=== PATIENT | female | born 1990 | race Caucasian/White ===

== ENCOUNTER 2022-10-13 05:55 | Inpatient (IN) | payer OTHER ==
[2022-10-13] MEDS ORDERED: LIDOCAINE 0.5% (PF) 5 MG/ML (50 ML SDV) SQ PRN (06:40)
[2022-10-13] MEDS ORDERED: TERBUTALINE 1 MG/ML VIAL SQ PRN (06:40)
[2022-10-13] MEDS ORDERED: OXYTOCIN 30 UNITS/500 ML NS 30 UNIT in SALINE 1 500ML.BAG IV SCH ×2 (06:45→17:00)
[2022-10-13] MEDS: LACTATED RINGERS 1,000 ML IV SCH ×3 (06:46→15:29)
[2022-10-13 07:05] LABS: Basophils # (A) 0.1 k/uL (0-0.2); Basophils % (A) 1 %; Eosinophils # (A) 0.4 k/uL (0-0.7); Eosinophils % (A) 2 %; HCT 31.7 % (34.0-46.0); HGB 11.1 gm/dL (11.4-16.0); Lymphocytes # (A) 3.4 k/uL (1.0-4.8); Lymphocytes % (A) 17 %; MCH 31.7 pg (25.0-35.0); MCHC 34.9 g/dL (31.0-37.0); MCV 90.9 fL (80.0-100.0); Mean Platelet Volume 10.6; Monocytes # (A) 1.4 k/uL (0-1.0); Monocytes % (A) 7 %; Neutrophils # (A) 15.1 k/uL (1.3-7.7); Neutrophils % (A) 73 %; Platelet Count 253 k/uL (150-450); Poikilocytosis Slight; RBC 3.48 m/uL (3.80-5.40); RDW 14.2 % (11.5-15.5); WBC 20.8 k/uL (3.8-10.6)
[2022-10-13 11:12] LABS: Amphetamine Screen,Urine Not Detected (NotDetected); Barbiturate Screen,Urine Not Detected (NotDetected); Benzodiazepines Screen,Urine Not Detected (NotDetected); Cocaine Screen,Urine Not Detected (NotDetected); Methadone Screen, Urine Not Detected (NotDetected); Opiate Screen,Urine Not Detected (NotDetected); Oxycodone Screen, Urine Not Detected (NotDetected); Phencyclidine Screen,Urine Not Detected (NotDetected); Tricyclic Antidepressant,Urine Not Detected (NotDetected); Urn Cannabinoid Scrn Not Detected (NotDetected)
[2022-10-13] MEDS ORDERED: SODIUM CHLORIDE 0.9% 100 ML BAG ONE (12:34)
[2022-10-13] MEDS ORDERED: ROPIVACAINE 5 MG/ML 20 ML AMPULE ONE (12:34)
[2022-10-13] MEDS ORDERED: fentaNYL (PF) 50 MCG/ML 5 ML AMP ONE (12:34)
[2022-10-13] MEDS ORDERED: CITRIC ACID-SODIUM CITRATE 15 ML CUP PO ONE (16:15)
[2022-10-13] MEDS ORDERED: LIDOCAINE 4% LTA KIT (4 ML) TOPICAL ONE (16:17)
[2022-10-13] MEDS ORDERED: fentaNYL (PF) 50 MCG/ML 2 ML AMP ONE (16:17)
[2022-10-13] MEDS ORDERED: PHENYLEPHRINE-0.9% NACL SYG 1,000 MCG/10 ML SYRINGE ONE (16:17)
[2022-10-13] MEDS ORDERED: OXYTOCIN 30 UNITS/500 ML NS BAG IV ONE (16:17)
[2022-10-13] MEDS ORDERED: SUCCINYLCHOLINE CHLORIDE 200 MG/10 ML VIAL IV ONE (16:17)
[2022-10-13] MEDS ORDERED: ONDANSETRON 4 MG/2 ML VIAL ONE (16:17)
[2022-10-13] MEDS ORDERED: PROPOFOL 10 MG/ML 20 ML VIAL IV ONE (16:17)
[2022-10-13] MEDS ORDERED: KETOROLAC 15 MG/ML 1 ML VIAL ONE (16:17)
[2022-10-13] MEDS ORDERED: HYDROmorphone PCA 10 MG/50 ML BAG IV PRN (16:56)
[2022-10-13] MEDS ORDERED: NALOXONE 0.4 MG/ML 1 ML VIAL IV PRN ×2 (16:56→16:57)
[2022-10-13] MEDS ORDERED: diphenhydrAMINE 50 MG/ML 1 ML VIAL IVP PRN ×2 (16:57)
[2022-10-13] MEDS ORDERED: diphenhydrAMINE 50 MG CAP PO PRN (16:57)
[2022-10-13] MEDS ORDERED: ONDANSETRON 4 MG/2 ML VIAL IVP PRN (16:57)
[2022-10-13] MEDS ORDERED: METOCLOPRAMIDE 5 MG/ML 2 ML VIAL IVP PRN (16:57)
[2022-10-13] MEDS ORDERED: SIMETHICONE 80 MG CHEWABLE PO PRN (16:57)
[2022-10-13] MEDS ORDERED: LANOLIN CREAM 5 GM TUBE TOPICAL PRN (16:57)
[2022-10-13] MEDS ORDERED: diphenhydrAMINE 25 MG CAP PO PRN (16:57)
[2022-10-13] MEDS ORDERED: ZOLPIDEM 5 MG TAB PO PRN (16:57)
[2022-10-13 17:50] VITALS: RESP 16
[2022-10-13] MEDS: SENNOSIDES-DOCUSATE SODIUM 1 EACH TAB PO SCH ×2 (22:53)
[2022-10-13] MEDS: KETOROLAC 15 MG/ML 1 ML VIAL IVP SCH (23:20)
[2022-10-13] MEDS: ACETAMINOPHEN TAB 500 MG TAB PO SCH (23:39)
[2022-10-14] MEDS: ACETAMINOPHEN TAB 500 MG TAB PO SCH ×4 (03:24→22:18)
[2022-10-14] MEDS: KETOROLAC 15 MG/ML 1 ML VIAL IVP SCH ×4 (06:30→18:23)
[2022-10-14 08:17] LABS: Basophils # (A) 0.1 k/uL (0-0.2); Basophils % (A) 0 %; Eosinophils # (A) 0.3 k/uL (0-0.7); Eosinophils % (A) 1 %; HCT 27.1 % (34.0-46.0); Hypochromasia Slight; Lymphocytes # (A) 3.8 k/uL (1.0-4.8); Lymphocytes % (A) 15 %; MCH 31.4 pg (25.0-35.0); MCHC 33.6 g/dL (31.0-37.0); MCV 93.3 fL (80.0-100.0); Mean Platelet Volume 10.4; Monocytes # (A) 1.6 k/uL (0-1.0); Monocytes % (A) 6 %; Neutrophils # (A) 19.6 k/uL (1.3-7.7); Neutrophils % (A) 76 %; Platelet Count 205 k/uL (150-450); RDW 14.3 % (11.5-15.5); WBC 25.7 k/uL (3.8-10.6)
[2022-10-14] MEDS: SENNOSIDES-DOCUSATE SODIUM 1 EACH TAB PO SCH ×3 (08:18→22:27)
[2022-10-14 08:26] LABS: HGB 9.1 gm/dL (11.4-16.0)
[2022-10-14] MEDS: LACTATED RINGERS 1,000 ML IV SCH ×2 (09:19→22:29)
[2022-10-14] MEDS: IBUPROFEN 600 MG TAB PO SCH ×2 (14:00→18:22)
--- NOTE | 2022-10-14 17:10 | P.HPOB ---
History of Present Illness H&P Date: 10/13/22 Chief Complaint: induction of labor 32 year old presents at 40 weeks and 3 days for induction of labor. Her cervix is 1-2 cm dilated, 70% effaced, -2 station. She is viridiana irregularly. heart tones 135 with moderate variability and reactive. Review of Systems All systems: negative Constitutional: Denies chills, Denies fever Eyes: denies blurred vision, denies pain Ears, nose, mouth and throat: Denies headache, Denies sore throat Cardiovascular: Denies chest pain, Denies shortness of breath Respiratory: Denies cough Gastrointestinal: Denies abdominal pain, Denies diarrhea, Denies nausea, Denies vomiting Genitourinary: Denies dysuria, Denies hematuria Musculoskeletal: Denies myalgias Integumentary: Denies pruritus, Denies rash Neurological: Denies numbness, Denies weakness Psychiatric: Denies anxiety, Denies depression Endocrine: Denies fatigue, Denies weight change Past Medical History Additional Past Medical History / Comment(s): Ventricular Hypertrophy, PCOS History of Any Multi-Drug Resistant Organisms: None Reported Past Surgical History: Adenoidectomy, Tonsillectomy Past Anesthesia/Blood Transfusion Reactions: No Reported Reaction Smoking Status: Current every day smoker Past Drug Use History: Marijuana Medications and Allergies Home Medications Medication Instructions Recorded Confirmed Type Vit No.179/Iron/Folic 1 tab PO DAILY 10/13/22 10/13/22 History [ Tablet] Allergies Allergy/AdvReac Type Severity Reaction Status Date / Time No Known Allergies Allergy Verified 10/13/22 06:39 Exam Osteopathic Statement: *. No significant issues noted on an osteopathic structural exam other than those noted in the History and Physical/Consult. Vital Signs Temp Pulse Resp BP Pulse Ox 10/14/22 16:56 100 10/14/22 16:00 97.6 F 65 16 104/70 100 10/14/22 11:57 97.8 F 82 16 112/70 10/14/22 08:00 97.5 F L 83 16 111/72 10/14/22 04:00 97.7 F 69 16 122/86 99 10/13/22 23:52 97.7 F 71 16 110/74 100 10/13/22 19:08 81 16 110/72 99 10/13/22 18:38 75 16 115/65 99 10/13/22 18:08 75 16 119/69 100 10/13/22 17:53 97.5 F L 86 16 123/66 100 10/13/22 17:38 79 16 147/62 100 10/13/22 17:23 88 15 118/80 100 Intake and Output 10/14/22 10/14/22 10/14/22 06:59 14:59 22:59 Output Total 750 200 Balance -750 -200 Output: Urine 750 200 Uretheral (Boyer) 150 Other: Voiding Method Indwelling Catheter Toilet Toilet Indwelling Catheter Indwelling Catheter # Voids 1 1 2 Heart: Regular rate and rhythm Lungs: Clear to auscultation bilaterally Abdomen: Soft, nontender Extremities: Negative Homans sign Results Result Diagrams: 10/14/22 07:42 Abnormal Lab Results - Last 24 Hours (Table) 10/14/22 Range/Units 07:42 WBC 25.7 H (3.8-10.6) k/uL RBC 2.90 L (3.80-5.40) m/uL Hgb 9.1 L D (11.4-16.0) gm/dL Hct 27.1 L (34.0-46.0) % Neutrophils # 19.6 H (1.3-7.7) k/uL Monocytes # 1.6 H (0-1.0) k/uL Assessment and Plan (1) Elective induction of labor planned Current Visit: Yes Status: Acute Code(s): [id number] - SNOMED Code(s): 093218729 Plan: 1. Induction of labor with amniotomy and Pitocin 2. Anticipate normal vaginal delivery
--- NOTE | 2022-10-14 17:15 | P.OP ---
Date of Procedure: 10/14/22 Preoperative Diagnosis: 1. 40 weeks and 3 days 2. Active labor 3. Breech presentation Postoperative Diagnosis: Same Procedure(s) Performed: Primary low transverse Anesthesia: GETA, epidural Surgeon: Rose Staples Wood Die Maker #1: Wolf Brumfield Estimated Blood Loss (ml): 420 IV fluids (ml): 1,000 Urine output (ml): 200 Pathology: none sent Condition: stable Disposition: floor Indications for Procedure: 32-year-old presented at 40 weeks and 3 days for induction of labor. Her cervix was 1-2 centers dilated, 70% effaced, -3 station. She is viridiana irregularly. heart tones 135 with moderate variability and reactive. Amniotomy was performed at 7:44 AM and clear fluid was noted. Pitocin had also been started. She progressed to 3 cm at lunchtime at which time I checked her and she was 3 cm dilated, 90% effaced and -3 station. An FACG was placed on the head at this time. A couple hours later after the patient had done some position changes the scalpel electrode came off of the nurse replaced it, found the patient to be 8 cm and then soon after complete. She started to push with the patient and noted dark meconium coming out with every push. She checked the patient again and noticed that the fetus was no longer in vertex presentation but aixa breech. I was called to the patient bedside immediately and patient's 100 fundal was held and the need for next but I did delivery was discussed with the patient. Was our clinical recommendation to proceed with delivery and after questions were answered the patient agrees to proceed with the recommended plan. Operative Findings: Viable female, Apgars 9, 9, weight 5 lbs. 6 oz. Normal uterus, tubes, ovaries. Description of Procedure: Patient was taken to the operating room where spinal anesthesia was found be adequate. She was prepped and draped in normal sterile fashion in dorsal supine position with a leftward tilt. Pfannenstiel skin incision was made the scalpel and carried through to the underlying layer of fascia with the scalpel. Fascia was incised in midline and carried bilaterally with the Recio scissors. The superior aspect of the fascial incision was grasped with Domitila clamps elevated and the underlying rectus muscles dissected off with the Recio's. Attention was then turned to inferior aspect of same incision which in a similar fashion was grasped tented up and the underlying rectus muscles dissected off with the Recio's. The rectus muscles were the midline and the peritoneum was identified tented up and entered sharply with the scalpel. The incision was extended superiorly and inferiorly with good visualization of the bladder. The bladder blade was inserted and the vesicouterine peritoneum was incised the Metzenbaums then carried bilaterally and bladder flap created digitally. A low transverse incision was then made on the uterus with the scalpel. This was carried bilaterally and digital manner. Was delivered in the normal breech fashion, nose and mouth bulb suctioned, cord clamped and cut, handed off to waiting nurses. Apgars 9,9, weight 5 lbs. 6 oz. Placenta delivered manually, intact with three-vessel cord. The uterus is exteriorized and cleared of all clots and debris. The uterine incision was closed with 0 Vicryl in a running locked fashion. Second layer of the same sutures used in imbricating fashion to obtain excellent hemostasis. Bladder flap was then reapproximated using 2-0 Vicryl in a running fashion. Both ovaries and tubes appeared normal. The uterus was placed back into the abdomen. The peritoneum was reapproximated using 2-0 Vicryl in a running fashion. The muscles were reapproximated using 2- 0 Vicryl in interrupted fashion. The fascia was reapproximated using 0 Vicryl in a running fashion. The subcutaneous tissues closed with 3-0 Vicryl running fashion. The skin was closed matthieu. Patient tolerated the procedure well, sponge and instrument counts were correct times 2 and she was taken to the recovery room in stable condition.
--- NOTE | 2022-10-14 17:16 | P.PNOBGPC ---
Subjective - Subjective Principal diagnosis: Status post primary low transverse postop day 1 Interval history: Patient seen and examined. Denies nausea, vomiting, chest pain, shortness of breath or calf pain. Patient reports: Reports appetite normal, Reports voiding normally, Reports pain well controlled, Reports ambulating normally [place]: doing well Objective - Vital Signs Latest vital signs: Vital Signs Temp Pulse Resp BP Pulse Ox 10/14/22 16:56 100 10/14/22 16:00 97.6 F 65 16 104/70 100 10/14/22 11:57 97.8 F 82 16 112/70 10/14/22 08:00 97.5 F L 83 16 111/72 10/14/22 04:00 97.7 F 69 16 122/86 99 10/13/22 23:52 97.7 F 71 16 110/74 100 10/13/22 19:08 81 16 110/72 99 10/13/22 18:38 75 16 115/65 99 10/13/22 18:08 75 16 119/69 100 10/13/22 17:53 97.5 F L 86 16 123/66 100 10/13/22 17:38 79 16 147/62 100 10/13/22 17:23 88 15 118/80 100 Intake and Output 10/14/22 10/14/22 10/14/22 06:59 14:59 22:59 Output Total 750 200 Balance -750 -200 Output: Urine 750 200 Uretheral (Boyer) 150 Other: Voiding Method Indwelling Catheter Toilet Toilet Indwelling Catheter Indwelling Catheter # Voids 1 1 2 - Exam Lungs: bilateral: normal Chest: Normal S1, Normal S2 Extremities: Present: normal Abdomen: Present: normal appearance, soft. Absent: distention, tenderness Incision: Present: normal, dry, intact Uterus: Present: normal, firm - Labs Labs: Abnormal Lab Results - Last 24 Hours (Table) 10/14/22 Range/Units 07:42 WBC 25.7 H (3.8-10.6) k/uL RBC 2.90 L (3.80-5.40) m/uL Hgb 9.1 L D (11.4-16.0) gm/dL Hct 27.1 L (34.0-46.0) % Neutrophils # 19.6 H (1.3-7.7) k/uL Monocytes # 1.6 H (0-1.0) k/uL Assessment and Plan (1) Elective induction of labor planned Current Visit: Yes Status: Resolved Code(s): JTB4013 - SNOMED Code(s): 814817112 (2) Status post primary low transverse section Current Visit: Yes Status: Acute Code(s): Z98.891 - HISTORY OF UTERINE SCAR FROM PREVIOUS SURGERY SNOMED Code(s): 222430658 Plan: 1. Continue postoperative care 2. By mouth pain medication and DC SEA SHELL GATHERER
[2022-10-15] MEDS: IBUPROFEN 600 MG TAB PO SCH ×2 (00:05→12:03)
[2022-10-15] MEDS: SENNOSIDES-DOCUSATE SODIUM 1 EACH TAB PO SCH (08:24)
[2022-10-15] MEDS: ACETAMINOPHEN TAB 500 MG TAB PO SCH (08:25)
[2022-10-15 08:42] VITALS: BP 114/69; PULSE 70; TEMP 98.7
--- NOTE | 2022-10-15 13:01 | P.DS ---
Providers Date of admission: 10/13/22 05:55 Expected date of discharge: 10/15/22 Attending physician: Rose Staples Primary care physician: Stated None - Discharge Diagnosis(es) (1) Elective induction of labor planned Current Visit: Yes Status: Resolved (2) Status post primary low transverse section Current Visit: Yes Status: Acute Hospital Course: Patient presented for induction of labor. She underwent a primary low transverse for breech presentation. course was uncomplicated. She denies nausea, vomiting, chest pain, shortness of breath or calf pain. Her incision is clean, dry, intact with matthieu. Patient will be discharged home day #2 in stable condition to follow-up with me in one week Plan - Discharge Summary Discharge Rx Participant: No New Discharge Prescriptions: New Ibuprofen [Motrin] 600 mg PO Q6HR #30 tab oxyCODONE HCL [OxyIR] 5 mg PO Q6HR PRN #12 tab PRN Reason: Pain No Action Vit No.179/Iron/Folic [ Tablet] 1 tab PO DAILY Discharge Medication List Vit No.179/Iron/Folic [ Tablet] 1 tab PO DAILY 10/13/22 [History] Ibuprofen [Motrin] 600 mg PO Q6HR #30 tab 10/15/22 [Rx] oxyCODONE HCL [OxyIR] 5 mg PO Q6HR PRN #12 tab 10/15/22 [Rx] Follow up Appointment(s)/Referral(s): Rose Staples DO [Doctor of Osteopathic Medicine] - 11/25/22 3:45 pm (Post Op appointment 11-25 at 3:45) Discharge Disposition: HOME SELF-CARE
--- NOTE | 2022-10-15 19:48 | P.PN ---
Progress Note - Text 10/14/22 643am 32-year-old female status post . Patient seen and evaluated for postop pain number she has a vas of 4 with complaints of mild pruritus which should subside soon
== END 2022-10-15 14:27 | disposition home or self-care (01) | DRG 786 ==
LOC: 4FBP 05:55
PROVIDERS: ADMIT Obstetrics & Gynecology; ATTEND Obstetrics & Gynecology
PROC: 10907ZC Drainage of Amniotic Fluid, Therapeutic from Products of Conception, Via Natural or Artificial Opening (ICD-10-PCS; 2022-10-13)
PROC: 4A0HXCZ Measurement of Products of Conception, Cardiac Rate, External Approach (ICD-10-PCS; 2022-10-13)
PROC: 3E033VJ Introduction of Other Hormone into Peripheral Vein, Percutaneous Approach (ICD-10-PCS; 2022-10-13)
PROC: 10H073Z Insertion of Monitoring Electrode into Products of Conception, Via Natural or Artificial Opening (ICD-10-PCS; 2022-10-13)
PROC: 10D00Z1 Extraction of Products of Conception, Low, Open Approach (ICD-10-PCS; principal; 2022-10-13 16:17)
DX: O32.1XX0 Maternal care for breech presentation, not applicable or unspecified (principal); O99.42 Diseases of the circulatory system complicating childbirth; O77.0 Labor and delivery complicated by meconium in amniotic fluid; F17.210 Nicotine dependence, cigarettes, uncomplicated; O99.284 Endocrine, nutritional and metabolic diseases complicating childbirth; E28.2 Polycystic ovarian syndrome; I51.7 Cardiomegaly; O48.0 Post-term pregnancy; O99.334 Smoking (tobacco) complicating childbirth; Z37.0 Single live birth; Z3A.40 40 weeks gestation of pregnancy
CPT/HCPCS: 80306; 85025; 86850; 86900; 86901

== ENCOUNTER 2023-10-08 18:17 | Inpatient (IN) | payer OTHER ==
[2023-10-08] MEDS ORDERED: CITRIC ACID-SODIUM CITRATE 15 ML CUP PO ONE (18:35)
[2023-10-08] MEDS ORDERED: METHYLERGONOVINE 0.2 MG/ML 1 ML AMP IM PRN (18:35)
[2023-10-08] MEDS ORDERED: miSOPROStoL 200 MCG TAB PO PRN (18:35)
[2023-10-08] MEDS ORDERED: OXYTOCIN 10 UNIT/ML 1 ML VIAL IM PRN (18:35)
[2023-10-08] MEDS ORDERED: CARBOPROST TROMETHAMINE 250 MCG/ML 1 ML AMP IM PRN (18:35)
[2023-10-08] MEDS ORDERED: LACTATED RINGERS 1,000 ML IV ONE (18:35)
[2023-10-08] MEDS ORDERED: TRANEXAMIC 1,000 MG/100ML-NACL 1,000 MG in EMPTY BAG 1 BAG IV PRN (18:35)
[2023-10-08] MEDS ORDERED: LACTATED RINGERS 1,000 ML IV SCH (18:45)
[2023-10-08] MEDS ORDERED: KETOROLAC 15 MG/ML 1 ML VIAL ONE (18:55)
[2023-10-08] MEDS ORDERED: MORPHINE SULFATE (PF) 0.3 MG/0.3 ML SYR ONE (18:55)
[2023-10-08] MEDS ORDERED: OXYTOCIN 30 UNITS/500 ML NS BAG IV ONE (18:55)
[2023-10-08] MEDS ORDERED: PHENYLEPHRINE-0.9% NACL SYG 1,000 MCG/10 ML SYRINGE ONE (18:55)
[2023-10-08 18:59] LABS: Basophils # (A) 0.1 k/uL (0-0.2); Basophils % (A) 1 %; Eosinophils # (A) 0.5 k/uL (0-0.7); Eosinophils % (A) 2 %; HGB 11.8 gm/dL (11.4-16.0); Lymphocytes # (A) 3.8 k/uL (1.0-4.8); Lymphocytes % (A) 19 %; MCH 30.8 pg (25.0-35.0); MCHC 33.7 g/dL (31.0-37.0); MCV 91.5 fL (80.0-100.0); Monocytes # (A) 1.1 k/uL (0-1.0); Monocytes % (A) 6 %; Neutrophils # (A) 14.5 k/uL (1.3-7.7); Neutrophils % (A) 72 %; Platelet Count 233 k/uL (150-450); RBC 3.83 m/uL (3.80-5.40); RDW 13.8 % (11.5-15.5); WBC 20.3 k/uL (3.8-10.6)
[2023-10-08] MEDS ORDERED: HYDROmorphone 0.5 MG/0.5 ML SYRINGE IVP PRN (19:35)
[2023-10-08] MEDS ORDERED: diphenhydrAMINE 50 MG/ML 1 ML VIAL IVP PRN (19:35)
[2023-10-08] MEDS ORDERED: ONDANSETRON 4 MG/2 ML VIAL IVP PRN (19:35)
[2023-10-08] MEDS ORDERED: NALOXONE 0.4 MG/ML 1 ML VIAL IV PRN (19:35)
[2023-10-08] MEDS ORDERED: ZOLPIDEM 5 MG TAB PO PRN (19:37)
[2023-10-08] MEDS ORDERED: SIMETHICONE 80 MG CHEWABLE PO PRN (19:37)
[2023-10-08] MEDS ORDERED: METOCLOPRAMIDE 5 MG/ML 2 ML VIAL IVP PRN (19:37)
[2023-10-08] MEDS ORDERED: LANOLIN CREAM 5 GM TUBE TOPICAL PRN (19:37)
--- NOTE | 2023-10-08 19:45 | P.HPOB ---
History of Present Illness H&P Date: 10/08/23 Chief Complaint: Contractions and vaginal bleeding This patient is a 33-year-old 3 para 1 female estimated date of confinement 10/13/2023 estimated gestational age 39-2/7 weeks who called me this afternoon complaining of bleeding that began this morning. Patient instructed to come to labor and delivery found to be 6 cm dilated in active labor. Patient's had previous section for breech and she and her primary physician, Dr. Staples, had planned to do a repeat for delivery. care is complicated by a complete previa that was seen at 20 weeks and then 24 weeks. This did however completely resolved and by 35 weeks there is no placenta previa and the placenta was posterior. care otherwise appears to be uncomplicated. Review of Systems Genitourinary: Reports Menstruation: Reports amenorrhea Past Medical History Additional Past Medical History / Comment(s): Ventricular Hypertrophy, PCOS. History of Any Multi-Drug Resistant Organisms: None Reported Past Surgical History: Adenoidectomy, Section, Tonsillectomy Past Anesthesia/Blood Transfusion Reactions: No Reported Reaction Past Psychological History: No Psychological Hx Reported Smoking Status: Current every day smoker Past Alcohol Use History: None Reported Past Drug Use History: Marijuana - Past Family History Mother Family Medical History: No Reported History Medications and Allergies Home Medications Medication Instructions Recorded Confirmed Type Vit No.179/Iron/Folic 1 tab PO DAILY 10/13/22 10/08/23 History [ Tablet] Allergies Allergy/AdvReac Type Severity Reaction Status Date / Time No Known Allergies Allergy Verified 10/08/23 18:24 Exam Vital Signs Temp Pulse Resp BP Pulse Ox 10/08/23 18:57 98.2 F 84 16 112/74 97 Intake and Output 10/08/23 10/08/23 10/08/23 06:59 14:59 22:59 Other: Weight 88.451 kg - OBG Physical Exam Abdomen: bowel sounds normal, no diffuse tenderness, no bruit present, no guarding noted, no hepatomegaly, no splenomegaly, no mass Vulva: both: normal Vagina: normal moisture, no discharge Cervix: no lesion (Cervix is 6 cm dilated on admission), no discharge Uterus: enlarged Results labs show she is A positive, rubella immune, RPR is nonreactive, HIV is nonreactive, hepatitis C and B were negative, Glucola was normal, group B strep was negative, ultrasounds as above. Result Diagrams: 10/08/23 18:43 Abnormal Lab Results - Last 24 Hours (Table) 10/08/23 Range/Units 18:43 WBC 20.3 H (3.8-10.6) k/uL Neutrophils # 14.5 H (1.3-7.7) k/uL Monocytes # 1.1 H (0-1.0) k/uL Assessment and Plan Assessment: This is a 33-year-old 3 para 1 female 39-2/7 weeks gestation who is admitted to labor and delivery in active labor. Patient had a previous section and plan is to do a repeat section per patient request. Patient understands this surgery and risks and risks of infection, bleeding, possible injury bowel, bladder, vessels, and other organs. All the patient's questions are answered and a written consent is obtained. (1) 39 weeks gestation of Current Visit: Yes Status: Acute Code(s): Z3A.39 - 39 WEEKS GESTATION OF SNOMED Code(s): 30340663 (2) Active labor Current Visit: Yes Status: Acute Code(s): NYV8714 - SNOMED Code(s): 113641315 (3) Previous delivery affecting Current Visit: Yes Status: Acute Code(s): O34.219 - MATERNAL CARE FOR UNSP TYPE SCAR FROM PREVIOUS DEL SNOMED Code(s): 889313580
--- NOTE | 2023-10-08 19:52 | P.OP ---
Date of Procedure: 10/08/23 Preoperative Diagnosis: #1: 39-2/7 week intrauterine . #2: Previous section desires repeat. #3: Active labor Postoperative Diagnosis: Same Procedure(s) Performed: Repeat low transverse section Anesthesia: spinal Surgeon: Wolf Brumfield Machine Cell Tuber #1: Dwight Pantoja Estimated Blood Loss (ml): 600 Pathology: none sent Condition: stable Disposition: floor Indications for Procedure: Please see dictated H&P for intimate details of this patient's admission. Brief summary this is a 33-year-old 3 para 1 female 39-2/7 weeks gestation admitted to labor and delivery in active labor. Patient's had previous section and desires repeat for delivery. Patient understands this surgery and risks and risks of infection, bleeding, possible injury bowel, bladder, vessels, and other organs. All the patient's questions are answered and a written consent is obtained. Operative Findings: This is a vigorous viable female Apgars are 8 and 9 delivery time is 1908 hrs. This patient normal appearing uterus, tubes, ovaries. Description of Procedure: This patient has a Boyer catheter placed to straight drain. Patient subsequently taken to the operating room where she sat up and spinal anesthetic is administered without incident. She has abdominal prep and drape. Appropriate timeout was done. Scalpels then taken previous Pfannenstiel incision is incised. A second scalpel is taken down the fascia the fascia scored with a knife. Fascial incision extended bilaterally using the Recio scissors. The fascia is then dissected off the rectus muscles sharply. Rectus muscles are the peritoneum identified and entered sharply. Peritoneal incision extended superior and inferior without difficulty. Bladder blade is then placed. Bladder peritoneum was then taken sharply off the lower uterine segment. Scalpels and taken low transverse uterine incision is then made. Using a hemostat intrauterine cavity bluntly and there is loss of clear fluid. Uterine incision is then extended bluntly. 's head is then guided through the incision with fundal pressure delivered. Mouth and nares were bulb suctioned. There is a nuchal cord which is easily reduced. With gentle fundal pressure we then have deliver the rest this infant's body. This is a vigorous viable female infant Apgars are 8 and 9 delivery time is 1908 hrs. After delivery of the the umbilical cord is doubly clamped and cut appears to be trivascular. The infant is then handed off to the nurses. The placenta is then manually extracted intact. Uterus is then externalized and uterine incision demarcated with Warner clamps. Uterine incision is then closed using 0 Vicryl running locked fashion 2 layers. Excellent hemostasis is noted. Bladder peritoneum was then reapproximated using a 3-0 Vicryl running fashion. Excess fluid is removed from the abdomen and pelvis. Uterus placed back into the abdomen. Parietal peritoneum was then closed using 0 Vicryl running fashion. Rectus muscles reapproximated in 0 Vicryl interrupted fashion. Fascial incision is then closed using 0 PDS. Fascial incision is intact and hemostatic. Subcutaneous tissues and closed using a 3-0 Vicryl. Skin is and closed using matthieu. All counts are correct 3. There are no complications. Infant and mother are stable in delivery room.
[2023-10-08] MEDS ORDERED: OXYTOCIN 30 UNITS/500 ML NS 30 UNIT in SALINE 1 500ML.BAG IV SCH (20:00)
[2023-10-08] MEDS: SENNOSIDES-DOCUSATE SODIUM 1 EACH TAB PO SCH (22:13)
[2023-10-09] MEDS: KETOROLAC 15 MG/ML 1 ML VIAL IVP PRN ×4 (00:07→18:38)
[2023-10-09] MEDS: LACTATED RINGERS 1,000 ML IV SCH ×4 (00:08→20:16)
[2023-10-09] MEDS: ACETAMINOPHEN TAB 500 MG TAB PO SCH ×5 (02:51→21:33)
[2023-10-09] MEDS: IBUPROFEN 600 MG TAB PO SCH ×4 (02:51→20:16)
--- NOTE | 2023-10-09 06:49 | P.PNOBGPC ---
Subjective - Subjective Patient reports: Reports appetite normal, Reports voiding normally, Reports pain well controlled, Reports ambulating normally : doing well Objective - Vital Signs Latest vital signs: Vital Signs Temp Pulse Resp BP Pulse Ox 10/09/23 06:00 16 10/09/23 04:00 18 97 10/09/23 03:32 98.6 F 62 16 103/71 97 10/09/23 02:00 16 10/09/23 00:36 97 10/09/23 00:00 97.7 F 53 L 18 104/64 97 10/08/23 22:36 18 10/08/23 21:31 82 16 112/65 10/08/23 21:01 96.6 F L 61 16 107/57 10/08/23 20:31 96.6 F L 62 16 102/67 10/08/23 20:16 96.6 F L 58 L 16 98/62 99 10/08/23 20:01 61 16 102/60 98 10/08/23 19:46 96.7 F L 71 16 100/55 98 10/08/23 19:31 97.0 F L 66 16 101/57 98 10/08/23 18:57 97.0 F L 66 16 101/57 98 Intake and Output 10/08/23 10/08/23 10/09/23 14:59 22:59 06:59 Output Total 570 350 Balance -570 -350 Output: Urine 100 350 Uretheral (Boyer) 350 Estimated Blood Loss 413 Output, Quantitative 57 Blood Loss Other: Voiding Method Indwelling Catheter Indwelling Catheter Weight 88.451 kg - Exam Lungs: bilateral: normal Chest: Normal S1, Normal S2 Extremities: Present: normal Abdomen: Present: normal appearance, soft. Absent: distention, tenderness Incision: Present: normal, dry, intact Uterus: Present: normal, firm - Labs Labs: Abnormal Lab Results - Last 24 Hours (Table) 10/08/23 Range/Units 18:43 WBC 20.3 H (3.8-10.6) k/uL Neutrophils # 14.5 H (1.3-7.7) k/uL Monocytes # 1.1 H (0-1.0) k/uL Assessment and Plan Assessment: Post operative day #1. Patient is resting without complaints. Vital signs are stable she is afebrile. Uterus is firm nontender and her incision is intact and dry. Plan today is to discontinue her catheter, check a CBC, advance her diet, allow the patient to shower, and continue routine postoperative care (1) 39 weeks gestation of Current Visit: Yes Status: Acute Code(s): Z3A.39 - 39 WEEKS GESTATION OF SNOMED Code(s): 73197720 (2) Active labor Current Visit: Yes Status: Acute Code(s): CDL9671 - SNOMED Code(s): 099474839 (3) Previous delivery affecting Current Visit: Yes Status: Acute Code(s): O34.219 - MATERNAL CARE FOR UNSP TYPE SCAR FROM PREVIOUS DEL SNOMED Code(s): 218505785
[2023-10-09 06:53] LABS: Basophils # (A) 0.1 k/uL (0-0.2); Basophils % (A) 0 %; Eosinophils # (A) 0.4 k/uL (0-0.7); Eosinophils % (A) 2 %; HCT 30.4 % (34.0-46.0); HGB 10.3 gm/dL (11.4-16.0); Lymphocytes # (A) 3.9 k/uL (1.0-4.8); Lymphocytes % (A) 16 %; MCH 30.8 pg (25.0-35.0); MCV 90.5 fL (80.0-100.0); Mean Platelet Volume 10.4; Monocytes # (A) 1.3 k/uL (0-1.0); Monocytes % (A) 5 %; Neutrophils # (A) 18.1 k/uL (1.3-7.7); Neutrophils % (A) 75 %; Platelet Count 193 k/uL (150-450); Poikilocytosis Slight; RBC 3.36 m/uL (3.80-5.40); RDW 14.1 % (11.5-15.5); WBC 24.1 k/uL (3.8-10.6)
[2023-10-09] MEDS: SENNOSIDES-DOCUSATE SODIUM 1 EACH TAB PO SCH ×2 (08:34→21:32)
[2023-10-09 13:34] VITALS: RESP 16
--- NOTE | 2023-10-09 15:13 | P.PN ---
Progress Note - Text Progress Note Date: 10/09/23 Postoperative day 1 status post section under spinal anesthesia, and i ntrathecal morphine given for postoperative analgesia, patient doing well, there is no anesthesia related complications, Patient had no headache, vital signs stable , Assessment and plan= postop day 1 status post , doing well there is no anesthesia related complication.
[2023-10-10] MEDS: IBUPROFEN 600 MG TAB PO SCH ×2 (00:11→06:02)
[2023-10-10] MEDS: ACETAMINOPHEN TAB 500 MG TAB PO SCH ×2 (03:32→08:37)
[2023-10-10] MEDS: LACTATED RINGERS 1,000 ML IV SCH (05:54)
--- NOTE | 2023-10-10 07:22 | P.PNOBGPC ---
Subjective - Subjective Patient reports: Reports appetite normal, Reports voiding normally, Reports pain well controlled, Reports ambulating normally : doing well Objective - Vital Signs Latest vital signs: Vital Signs Temp Pulse Resp BP Pulse Ox 10/10/23 00:00 98.3 F 70 16 103/62 100 10/09/23 16:00 98.2 F 70 16 112/67 99 10/09/23 12:00 98.0 F 64 16 107/69 99 10/09/23 08:00 97.7 F 68 15 111/77 100 Intake and Output 10/09/23 10/10/23 10/10/23 22:59 06:59 14:59 Output Total 300 Balance -300 Output: Urine 300 Other: # Voids 1 2 - Exam Lungs: bilateral: normal Chest: Normal S1, Normal S2 Extremities: Present: normal Abdomen: Present: normal appearance, soft. Absent: distention, tenderness Incision: Present: normal, dry, intact Uterus: Present: normal, firm Assessment and Plan Assessment: Postoperative day #2. Patient is resting without complaints and wishes to go home. Vital signs are stable she's afebrile. Uterus is firm nontender her incision is intact and dry. Patient is tolerating regular diet, urinating, ambulating without difficulty. Of note patient's CBC on admission showed an elevated white blood cell count 20.4 and yesterday was 24. I did review the patient's records and appears this is a chronic issue and no evidence of infection. I did discuss with the patient requests that she get a follow-up CBC in [address] she sees Dr. Staples in the office. Plan today is to continue routine care and we'll check a CBC. Discharge home later this morning (1) 39 weeks gestation of Current Visit: Yes Status: Acute Code(s): Z3A.39 - 39 WEEKS GESTATION OF SNOMED Code(s): 43732077 (2) Active labor Current Visit: Yes Status: Acute Code(s): FTE0647 - SNOMED Code(s): 396927263 (3) Previous delivery affecting Current Visit: Yes Status: Acute Code(s): O34.219 - MATERNAL CARE FOR UNSP TYPE SCAR FROM PREVIOUS DEL SNOMED Code(s): 366408969
--- NOTE | 2023-10-10 07:32 | P.DS ---
Providers Date of admission: 10/08/23 18:45 Expected date of discharge: 10/10/23 Attending physician: Rose Staples Primary care physician: Stated None - Discharge Diagnosis(es) (1) 39 weeks gestation of Current Visit: Yes Status: Acute (2) Active labor Current Visit: Yes Status: Acute (3) Previous delivery affecting Current Visit: Yes Status: Acute Hospital Course: Please see dictated H&P for intimate details of this patient's admission. Brief summary is a pleasant 33-year-old 3 para 1 female 39-2/7 weeks gestation admitted to labor and delivery in active labor. Patient undergoes repeat low transverse section for viable female . Please see dictated delivery note. On post operative day #2 patient's felt to be stable for discharge home follow up with Dr. Staples in 1 week. Of note patient did have an elevated white count on admission and throughout her hospitalization and appears to be chronic in nature and therefore advised repeat CBC in 1 week in the office. Procedures: Repeat low transverse section Patient Condition at Discharge: Good Plan - Discharge Summary New Discharge Prescriptions: New Ibuprofen [Motrin] 600 mg PO Q6H #40 tab oxyCODONE HCL [OxyIR] 5 mg PO Q4HR PRN #18 tab PRN Reason: Pain Scale 4 - 6 No Action Vit No.179/Iron/Folic [ Tablet] 1 tab PO DAILY Discharge Medication List Vit No.179/Iron/Folic [ Tablet] 1 tab PO DAILY 10/13/22 [History] Ibuprofen [Motrin] 600 mg PO Q6H #40 tab 10/10/23 [Rx] oxyCODONE HCL [OxyIR] 5 mg PO Q4HR PRN #18 tab 10/10/23 [Rx] Follow up Appointment(s)/Referral(s): Rose Staples DO [Doctor of Osteopathic Medicine] - 1 Week Patient Instructions/Handouts: (DC) Activity/Diet/Wound Care/Special Instructions: No heavy lifting or strenuous activity for 6 weeks. No intercourse or anything per vagina for 6 weeks. Please call if any fever, chills, excessive vaginal bleeding, and/or abdominal pain Discharge Disposition: HOME SELF-CARE
[2023-10-10] MEDS: SENNOSIDES-DOCUSATE SODIUM 1 EACH TAB PO SCH (08:36)
[2023-10-10 09:00] VITALS: BP 104/67; PULSE 73; TEMP 97.7
[2023-10-10 09:10] LABS: Basophils # (A) 0.1 k/uL (0-0.2); Basophils % (A) 0 %; Eosinophils # (A) 0.3 k/uL (0-0.7); Eosinophils % (A) 1 %; HCT 30.3 % (34.0-46.0); HGB 10.1 gm/dL (11.4-16.0); Hypochromasia Slight; Lymphocytes # (A) 3.2 k/uL (1.0-4.8); Lymphocytes % (A) 14 %; MCHC 33.3 g/dL (31.0-37.0); MCV 93.1 fL (80.0-100.0); Mean Platelet Volume 11.4; Monocytes # (A) 1.2 k/uL (0-1.0); Monocytes % (A) 6 %; Neutrophils % (A) 77 %; Platelet Count 211 k/uL (150-450); RBC 3.25 m/uL (3.80-5.40); RDW 14.4 % (11.5-15.5)
== END 2023-10-10 11:30 | disposition home or self-care (01) | DRG 540 ==
LOC: FBPOP 18:17 → 4FBP 18:45
PROVIDERS: ADMIT Obstetrics & Gynecology; ATTEND Obstetrics & Gynecology
PROC: 10D00Z1 Extraction of Products of Conception, Low, Open Approach (ICD-10-PCS; principal; 2023-10-08 19:00)
DX: O34.211 Maternal care for low transverse scar from previous cesarean delivery (principal); F17.210 Nicotine dependence, cigarettes, uncomplicated; O99.334 Smoking (tobacco) complicating childbirth; Z37.0 Single live birth; Z3A.39 39 weeks gestation of pregnancy
CPT/HCPCS: 59025; 85025; 86850; 86900; 86901; 99213